=== PATIENT | female | born 1970 | race African-American/Black ===

== ENCOUNTER 2018-01-10 13:57 | Outpatient (CLI) | payer OTHER | END 2018-01-10 13:58 | disposition home or self-care (01) | LOC: BICMAMMO 13:57 | PROVIDERS: ATTEND Family Medicine | DX: Z12.31 Encounter for screening mammogram for malignant neoplasm of breast (principal) | CPT/HCPCS: 77063; 77067 ==

== ENCOUNTER 2023-03-30 10:22 | Outpatient (CLI) | payer BC | END 2023-03-30 10:23 | disposition home or self-care (01) | LOC: RAD 10:22 | PROVIDERS: ATTEND Family Medicine | DX: M25.552 Pain in left hip (principal); M16.11 Unilateral primary osteoarthritis, right hip ==